=== PATIENT | male | born 1990 | race Hispanic/Latino ===

== ENCOUNTER 2022-05-18 18:30 | Emergency (ER) | payer OTHER, SELFPAY ==
[2022-05-18 18:35] VITALS: TEMP 36.1; BMI 29.1
--- NOTE | 2022-05-18 19:19 | EDS_ITS ---
HPI History of Present Illness Chief Complaint: Laceration Narrative Narrative: Patient presents via EMS with injury to his right hand, mainly his second digit. History and physical is limited secondary to the patient being mainly [place]- speaking. I do have a limited grasp of the [place] language. He states he is right-hand dominant and was using a meat cutting machine at work when his hand was caught by the machine. He complains of pain and laceration to his second digit. He denies other injury. [facility] Medical History Acute lumbar myofascial strain Cervical strain Closed head injury with loss of consciousness of unknown duration Contusion of right hip Contusion of right shoulder Thoracic myofascial strain Home Medications NK 07/06/21 [History Last Taken Unknown] Allergy/AdvReac Type Severity Reaction Status Date / Time No Known Allergies Allergy Unverified 05/18/22 18:31 Social History Smoking Status: Never smoker ROS ROS ED ROS Narrative Constitutional: No fever, no chills. HEENT: No sore throat. No neck pain. No loss of vision. No rhinorrhea. Cardiovascular: No chest pain. No palpitations. No pedal edema. Respiratory: No cough, no shortness of breath. Abdominal: No abdominal pain. No nausea. No vomiting. Genitourinary: No dysuria. No hematuria. Musculoskeletal: No myalgias. No arthralgias. Neurologic: No headaches. No dizziness. No lightheadedness. Skin: No rash. No change in color. Laceration to right second digit. Psychiatric: No depression. No anxiety. EXAM Physical Exam Narrative Exam Narrative: Afebrile. Vital signs noted. HEENT: Normocephalic. Atraumatic. PERRL, EOMI. Neck soft and supple. No point tenderness or step off. Cardiovascular: Regular rate and rhythm. No murmurs, rubs, or gallops appreciated. Respiratory: No tachypnea. Lungs clear to auscultation bilaterally. Gastrointestinal: Abdomen soft, nontender, with normoactive bowel sounds. No rebound or guarding. Neurological: Awake. Alert. Nonfocal, nonlateralizing. Skin: No rash. Normal color. No pallor. Large flap laceration to second digit starting from the PIP joint towards the hand. No noted arterial bleeding. Palpable radial pulse. Able to flex and extend finger but range of motion limited secondary to pain and bleeding. Musculoskeletal: No pedal edema. Full range of motion extremities. Const Vital Signs: 05/18/22 18:35 Temperature 96.9 F L Temperature Source Temporal Oxygen Delivery Method Room Air MDM MDM MDM Narrative Medical decision making narrative: Patient was given a tetanus immunization as he stated that he was unsure if he had received an immunization. X-rays were obtained of the right hand. He was given Tylenol for analgesia initially. My interpretation of his hand x-ray does show that he has an avulsion fracture at the base of the first phalanx on his right hand. There may be some involvement regarding the head of the second metacarpal. Given that this is an open fracture, he was started on Ancef. Baseline laboratory work was obtained including CBC, BMP, and coagulation studies. I do feel that he would benefit from transfer to see orthopedic hand surgery in the event that he will require washout in the operating room. Patient was discussed with the transfer center. He has been accepted by Dr. Lindsey with orthopedic hand surgery for an ED to ED transfer. Disposition is transferred in stable condition. Discharge Plan Triage Chief Complaint: Laceration ED Provider: Marc Barney Dx/Rx/DC Orders Clinical Impression: Open fracture of finger of right hand, Hand laceration, Open fracture of hand Prescriptions: No Action NK Primary Care Provider: Care Physician,No Primary Referrals: NOT,DEFINED [Non-Staff] - Disposition Disposition: Acute Care Hospital Discharge Location: [facility]
[2022-05-18] MEDS: Acetaminophen 500 MG Tablet 1000 MG PO (19:27)
[2022-05-18] MEDS: Diphth,Pertuss(Acell),Tet Vac 0.5 ML Vial IM (19:28)
--- NOTE | 2022-05-18 20:00 | RAD_ITS ---
STUDY: XR Hand Min 3 Views REASON FOR EXAM: Male, 32 years old. trauma, laceration pain TECHNIQUE: XR Hand Min 3 Views RIGHT COMPARISON: None. FINDINGS: Normal radiocarpal articulation. Normal distal radioulnar joint. Normal visualized carpal bones. Normal carpal articulations Normal carpometacarpal articulation of the thumb. Normal second through fifth carpometacarpal joints. There is likely mechanical related injury to the head of the second metacarpal bone. Normal metacarpophalangeal joint of the thumb. Normal interphalangeal joint of the thumb. Normal proximal and distal phalanges of the thumb. Normal metacarpophalangeal joints of the second through fifth fingers. Normal proximal and distal interphalangeal joints of the second through fifth fingers. Avulsed fracture fragment involving the base of the second proximal phalanx. Soft tissue air and edema noted. RAD/Hand Min 3 Views IMPRESSION: There is likely mechanical related injury to the head of the second metacarpal bone. Avulsed fracture fragment involving the base of the second proximal phalanx. Soft tissue air and edema noted. Electronically Signed: Alexis Jain MD at 20:19 EDT ,
[2022-05-18] MEDS: Cefazolin 1 GM/50 ML BAG IV (20:30)
[2022-05-18 20:33] VITALS: BP 129/79; PULSE 72; RESP 16; O2SAT 96
[2022-05-18 20:42] LABS: Absolute Lymphocyte Count 1.61 X10^3/uL (0.83-4.51); Absolute Neutrophil Count 5.1 X10^3/uL (2.0-7.7); Basophil# 0.08 X10^3/uL; Basophil% 1.1 % (0-1); Eosinophil# 0.17 X10^3/uL; Eosinophils% 2.3 % (0-5); Hematocrit 46.4 % (40-54); Lymphocyte # 1.61 X10^3/ul (0.83-4.51); Lymphocyte % 21.4 % (19-41); Mean Corp Hgb Conc 34.5 g/dL (32-36); Mean Corpuscular Hgb 28.9 pg (27.0-32.0); Mean Corpuscular Volume 83.8 fL (80-94); Mean Platelet Vol. 9.3 fl (6.2-12.0); Monocyte# 0.57 X10^3/uL; Monocyte% 7.6 % (0-10); NRBC Flagged by Analyzer 0 % (0-5); Neutrophil # 5.07 X10^3/uL (2.7-7.7); Neutrophil % 67.3 % (47-70); Platelet Count 334 K/mm3 (150-450); RBC Distribution Width CV 11.7 % (11.6-14.6); RBC Distribution Width SD 35.4 fl (35.1-43.9); Red Blood Count 5.54 M/mm3 (4.6-6.2); White Blood Count 7.5 K/mm3 (4.4-11.0)
[2022-05-18 20:52] LABS: Prothrombin Time (Protime)PT. 12.9 SECONDS (11.7-14.9)
[2022-05-18 20:55] LABS: Anion Gap 7 (5-15); BUN 17 mg/dL (7-18); BUN/Creat Ratio 17.3 RATIO (10-20); Calcium,Total 9.2 mg/dL (8.5-10.1); Chloride 110 mmol/L (98-107); Creatinine, Serum 0.98 mg/dL (0.70-1.30); EST Glomerular Filtration Rate 93 mL/min (>60); Est Glom Filt Rate - Afr Amer 113 mL/min (>60); Estimated Creatinine Clearance 89.77 ml/min; Glucose 114 mg/dL (74-106); Potassium 3.7 mmol/L (3.5-5.1); Sodium Level 143 mmol/L (136-145)
[2022-05-18 21:25] VITALS: BP 135/79; PULSE 65; RESP 16; O2SAT 95
[2022-05-18 21:46] VITALS: BP 135/79; PULSE 65; RESP 16; O2SAT 95
[2022-05-19 01:13] VITALS: BP 135/85; PULSE 67; RESP 16; O2SAT 96
[2022-05-19 04:00] VITALS: BP 131/85; PULSE 77; RESP 16; O2SAT 99
== END 2022-05-19 04:33 | disposition short-term general hospital (02) ==
PROVIDERS: Emergency Provider Emergency Medicine; Visit Provider Emergency Medicine
DX: S62.610B Displaced fracture of proximal phalanx of right index finger, initial encounter for open fracture (principal); W31.89XA Contact with other specified machinery, initial encounter
CPT/HCPCS: 73130; 80048; 85025; 85610; 85730; 87811; 90715; 96365; 99285; J7050; A4216